=== PATIENT | male | born 2000 | race Caucasian/White ===

== ENCOUNTER 2023-03-13 12:25 | Emergency (ER) | payer OTHER, SELFPAY ==
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
--- NOTE | ~2023-03-13 | XR_ITS ---
EXAMINATION: XR knee LT 3V DATE: 03/13/2023 16:21 INDICATION: Left knee pain TECHNIQUE: Anteroposterior, oblique and crosstable lateral views of the left knee were obtained COMPARISON: None. FINDINGS: Alignment is normal. No fracture. No joint effusion/layering lipohemarthrosis. Soft tissues are unre markable. IMPRESSION: 1. Negative left knee radiographs. Reviewed, dictated and finalized at location A. NG CHAIR SEAT CUSHION TRIMMER
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
[2023-03-13 12:39] VITALS: BP 142/86; PULSE 109; RESP 20; TEMP 36.6; O2SAT 100
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
[2023-03-13] MEDS: IBUPROFEN 600 MG TABLET PO (16:23)
[2023-03-13 17:21] VITALS: BP 130/88; PULSE 90; RESP 18; TEMP 36.6; O2SAT 98
== END 2023-03-13 17:25 | disposition home or self-care (01) ==
PROVIDERS: Emergency Provider Emergency Medicine
DX: S39.012A Strain of muscle, fascia and tendon of lower back, initial encounter (principal); S80.02XA Contusion of left knee, initial encounter; V89.2XXA Person injured in unspecified motor-vehicle accident, traffic, initial encounter
CPT/HCPCS: 72040; 72072; 72100; 73562; 99284; A9270

== ENCOUNTER 2023-12-20 10:58 | Emergency (ER) | payer OTHER, SELFPAY ==
--- NOTE | 2023-12-20 11:11 | ED_ITS ---
HPI - General Adult General Chief complaint: Unspecified Stated complaint: bleeding unk area Time Seen by Provider: 12/20/23 11:20 Source: patient Mode of arrival: ambulatory Limitations: no limitations History of Present Illness HPI narrative: 23 y/o male presented for c/o rectal bleeding while in the shower today. States he has had pain to the tailbone area when sitting for about one week. Admits to 'digging stuff out' while in the shower, reports boss stool smelling material, and states the pain is better afterwards. Has not noticed bleeding until today. Has saturated some gauze that has been in place for one hour. Denies recent constipation or hemorrhoids, n/v/d/f/c. Related Data Allergies Allergy/AdvReac Type Severity Reaction Status Date / Time No Known Allergies Allergy Verified 12/20/23 11:11 Review of Systems Review of Systems: CONSTITUTIONAL: Denies body aches, fever, chills, or sweats. CARDIOVASCULAR: Denies chest pain, palpitations, or edema. RESPIRATORY: Denies cough or dyspnea. GASTROINTESTINAL: Denies abdominal pain, nausea, vomiting, or diarrhea. SKIN: per HPI MUSCULOSKELETAL: Denies back pain, joint pain, or myalgia. NEUROLOGIC: Denies headache, numbness, tingling, or weakness. PMFSH Comments At time of signature, I have reviewed and agree with nursing past medical, surgical, social and family history unless otherwise noted. Please see nursing chart for further information. There is no relevant family history pertinent to the presenting complaint Exam Narrative: GENERAL: Well-appearing ENT: Mucous membranes moist. CHEST: Clear to auscultation. HEART: Regular rate and rhythm. SKIN: Warm, dry. Approx 3cm linear fissure noted to coccyx area, approx 2cm deep when pt reported pain. Active bleeding, saturated gauze in place. No fluctuance or surrounding induration, no purulent drainage noted. Skin is nontender surrounding the site. 2 additional pinpoint open areas distally without drainage or fluctuance. No external hemorrhoid noted. NEURO: Alert and oriented x3. Course Course Emergency Course: Patient is aware of diagnosis, understands and agrees to treatment plan. Anticipatory guidance given. Patient agrees to follow-up as directed and is aware of reasons to seek care at the emergency department. Portions of this record may have been created with voice recognition software Level of Care: Express Care Visit Vital Signs Vital signs: Vital Signs Temperature 97.4 F L 12/20/23 11:13 Pulse Rate 66 12/20/23 11:13 Respiratory Rate 15 12/20/23 11:13 Blood Pressure 132/88 12/20/23 11:13 Pulse Oximetry 100 12/20/23 11:13 Oxygen Delivery Room Air 12/20/23 11:13 Temperature 97.4 F L 12/20/23 11:13 Pulse Rate 66 12/20/23 11:13 Respiratory Rate 15 12/20/23 11:13 Blood Pressure 132/88 12/20/23 11:13 Pulse Oximetry 100 12/20/23 11:13 Oxygen Delivery Room Air 12/20/23 11:13 Reviewed Transfer Transfered to: [facility] Transportation: Other (Private vehicle) Transfer rationale: Pt is agreeable to transfer. Requests transfer to [facility] via private vehicle. Risks of transportation reviewed with pt including injury, worsening of condition and . v/u. Report called to hospital, spoke with Shailesh Mcmanus, accepting physician. Pt is in stable condition at time of transfer. Advised to remain NPO and go directly to the hospital. Medical Decision Making MDM Narrative Medical decision making narrative: Discussed physical exam findings with pt. Advised ER transfer due to bleeding at coccyx c/w fissure suspect 2/2 pilonidal abscess. Pt would like [facility]. Differential Diagnosis Differential Diagnosis: abscess, pilonidal cyst, cellulitis, fissure, carcinoma, hemorrhoid, Vital Signs Vital Signs: Vital Signs Temperature 97.4 F L 12/20/23 11:13 Pulse Rate 66 12/20/23 11:13 Respiratory Rate 15 12/20/23 11:13 Blood Pressure 132/88 12/20/23 11:13 Pulse Oximetry 100 12/20/23 11:13 Oxygen Delivery Room Air 12/20/23 11:13 Temperature 97.4 F L 12/20/23 11:13 Pulse Rate 66 12/20/23 11:13 Respiratory Rate 15 12/20/23 11:13 Blood Pressure 132/88 12/20/23 11:13 Pulse Oximetry 100 12/20/23 11:13 Oxygen Delivery Room Air 12/20/23 11:13 Discharge Plan Discharge Clinical Impression: Fissure of skin Patient Disposition: Acute Care Hospital Condition: Stable Prescriptions: No Action cyclobenzaprine 10 mg tablet 10 mg PO BID PRN (Reason: muscle spasm) Qty: 14 0RF Follow-up/Referrals: PHYSICIAN,DIRECTOR INSTRUCTIONAL MATERIAL [Primary Care Provider] - Time of Disposition: 11:48
[2023-12-20 11:13] VITALS: BP 132/88; PULSE 66; RESP 15; TEMP 36.3; O2SAT 100
== END 2023-12-20 11:40 | disposition short-term general hospital (02) ==
PROVIDERS: Emergency Provider Nurse Practitioner Family
DX: R23.4 Changes in skin texture (principal)
CPT/HCPCS: 99212; G0463

== ENCOUNTER 2023-12-20 11:55 | Emergency (ER) | payer OTHER, SELFPAY ==
--- NOTE | ~2023-12-20 | CT_ITS ---
CLINICAL INDICATION: Lower back abscess formation. COMPARISON: None. TECHNIQUE: An enhanced CT of the abdomen and pelvis was performed utilizing multislice spiral technEnval ue reconstructed at 5 mm slice thickness. Coronal and sagittal reconstructions were performed. This CT examination was performed utilizing dose reduction techniques. DLP: 1259 mGy-cm FINDINGS/OBSERVATIONS: Visualized lower thorax:Left basilar atelectasis is identified. The remainder of the lungs are unremarkable. Liver: The liver is not enlarged and enhances homogeneously. Gallbladder and biliary system: The gallbladder is decompressed without calcified stones. Pancreas: The pancreas enhances homogeneously, without ductal dilatation. Spleen: The spleen is not enlarged and enhances homogeneously. Kidneys: The bilateral kidneys enhance symmetrically. No hydronephrosis or renal calculi. Adrenal glands: Unremarkable Gastrointestinal tract: Unremarkable Appendix:The air-filled appendix is of normal caliber (axial series, image 119). Vasculature: Unremarkable Lymph nodes: No morphologically suspicious or pathologically enlarged lymph nodes identified within t he retroperitoneum or at the root of the mesentery. Pelvic structures:The bladder is only minimally distended, but otherwise unremarkable. The prostate gland is age-appropriate. Body wall and musculoskeletal: Small fat-containing umbilical hernia. Induration of the superficial soft tissues posterior to the distal sacrum and coccyx, without a fluid component. This induration measures 16 x 15 x 47mm (anterior to posterior x medial to lateral x stagecraft teacher nial to caudal dimension). IMPRESSION: Findings posterior to the distal sacrum and coccyx which given its location suggest an early pilonida l cyst (although without a fluid component currently). Otherwise, unremarkable CT examination of the abdomen and pelvis, as detailed above. Reviewed, dictated and finalized at location A. IMPRESSION: Findings posterior to the distal sacrum and coccyx which given its location sug gest an early pilonidal cyst (although without a fluid component currently). Otherwise, unremarkable CT examination of the abdomen and pelvis, as detailed a jessy.
[2023-12-20 12:03] VITALS: BP 128/80; PULSE 95; RESP 17; TEMP 36.7; O2SAT 98
--- NOTE | 2023-12-20 12:20 | ED_ITS ---
HPI - General Adult General Chief complaint: Skin/Abscess/Foreign Body Stated complaint: something going on in my tailbone area Time Seen by Provider: 12/20/23 12:10 Source: patient History of Present Illness HPI narrative: 23 years old white male came to the ED because of soreness at the lower back for while could be months noticed some bloody discharge in the last few days patient is healthy otherwise, does not smoke or drink or use drugs, Related Data Home Medications Medication Instructions Recorded Confirmed fludrocortisone 0.1 mg tablet 0.1 mg PO DAILY 12/20/23 12/20/23 Allergies Allergy/AdvReac Type Severity Reaction Status Date / Time No Known Allergies Allergy Verified 12/20/23 12:08 Review of Systems Review of Systems: All systems reviewed & are unremarkable except as noted in HPI and below Exam Narrative: General appearance: Well-developed, well-nourished Skin: Normal color Head: Normocephalic, nontraumatic Eyes: Clear conjunctiva ENT: Oropharynx normal, ears normal, nose normal Neck: Supple, nontender Chest and respiratory: Airway patent, no respiratory distress, no accessory muscle use Heart: Regular rate/rhythm Abdomen: Soft, nontender, no organomegaly, quiet bowel sounds Vascular: Normal peripheral pulses, normal capillary refill. Musculoskeletal: lower back exam showed diffuse tenderness along the midline of the sacral area with for a burning ranging from 4 mm to 3 cm no discharge Neurologic: Alert and oriented ?3, SUPERVISOR PATCHING is normal as tested, no gross motor deficit Course Consultations Consultation #1: DR CARRILLO OUTSIDE FOLLOW-UP Date: 12/20/23 Vital Signs Vital signs: Vital Signs Temperature 36.7 C 12/20/23 12:03 Pulse Rate 95 12/20/23 12:03 Respiratory Rate 17 12/20/23 12:03 Blood Pressure 128/80 12/20/23 12:03 Pulse Oximetry 98 12/20/23 12:03 Oxygen Delivery Room Air 12/20/23 12:03 Temperature 36.7 C 12/20/23 12:03 Pulse Rate 74 12/20/23 14:00 Respiratory Rate 15 12/20/23 14:00 Blood Pressure 141/84 H 12/20/23 14:00 Pulse Oximetry 100 12/20/23 14:00 Oxygen Delivery Room Air 12/20/23 12:03 Medical Decision Making [facility] Narrative Medical decision making narrative: PATIENT CAME TO THE ED BY PRIVATE CAR WITH PAIN AND DISCHARGE AT THE [facility] STARTED FEW WEEKS AGO VITAL SIGNS ARE STABLE PHYSICAL EXAMINATION SHOWING FINDINGS CONSISTENT WITH PILONIDAL CYST /ABSCESS WITH 4 OPENINGS DIFFERENTIAL DIAGNOSIS PILONIDAL CYST WITH ABSCESS BLOOD WORKUP TODAY SHOWED NORMAL WBC, NORMAL ELECTROLYTES, NORMAL ANION GAP CT ABDOMEN AND PELVIS WITIV CONTRAST SHOWED FINDING CONSISTENT WITH PILONIDAL CYST, NO ABSCESS DISCHARGED ON KEFLEX, FOLLOW-UP WITH DR. CARRILLO OUTPATIENT. THE PT WAS DISCHARGED TO HOME.THE PT,S CONDITION UPON DISCHARGE WAS FAIR,EDUC ATION WAS PROVIDED TO THE PT IN REFERENCE TO THE FINAL IMPRESSION,DISCHARGE STUDY RESULTS,TREATMENT,PROGNOSIS AND NEED FOR FOLLOW UP . Differential Diagnosis Differential Diagnosis: ABOVE Vital Signs Vital Signs: Vital Signs Temperature 36.7 C 12/20/23 12:03 Pulse Rate 95 12/20/23 12:03 Respiratory Rate 17 12/20/23 12:03 Blood Pressure 128/80 12/20/23 12:03 Pulse Oximetry 98 12/20/23 12:03 Oxygen Delivery Room Air 12/20/23 12:03 Temperature 36.7 C 12/20/23 12:03 Pulse Rate 74 12/20/23 14:00 Respiratory Rate 15 12/20/23 14:00 Blood Pressure 141/84 H 12/20/23 14:00 Pulse Oximetry 100 12/20/23 14:00 Oxygen Delivery Room Air 12/20/23 12:03 Lab Data 12/20/23 12:54 12/20/23 12:54 Labs: Lab Results 12/20/23 12/20/23 12/20/23 Range/Units 12:53 12:54 14:44 WBC 9.8 (4.5-10.0) K/mm3 RBC 5.38 (4.6-6.20) M/mm3 Hgb 15.3 (14.0-18.0) g/dL Hct 45.2 (42.0-52.0) % MCV 84.0 (80-100) fl MCH 28.4 (26-34) pg MCHC 33.8 (32-36) g/dl RDW 12.8 (11.5-14.5) % Plt Count 381 H (150-375) k/mm3 MPV 9.0 (7.4-10.4) fl Immature Gran % (Auto) 0.2 (0-0.5) % Neut % (Auto) 63.8 (45.5-73.1) % Lymph % (Auto) 26.6 (18.3-44.2) % [place] % (Auto) 7.4 (2.6-8.5) % Eos % (Auto) 1.4 (0-4.4) % Baso % (Auto) 0.6 (0.2-1.2) % Lymph # (Auto) 2.60 (0.9-3.2) K/mm3 [place] # (Auto) 0.7 H (0.1-0.6) K/mm3 Eos # (Auto) 0.1 (0-0.3) K/mm3 Baso # (Auto) 0.1 (0.0-0.1) K/mm3 Abs Immat Gran (auto) 0.02 (0.00-0.031) K/mm3 Absolute Neuts (auto) 6.2 (1.3-6.7) K/mm3 Absolute Nucleated RBC 0.000 (0.0-0.012) K/mm3 Nucleated RBC % 0.0 (0.0-0.2) % Sodium 142 (137-145) mmol/L Potassium 3.8 (3.4-5.0) mmol/L Chloride 103 (98-107) mmol/L Carbon Dioxide 26 (22-30) mmol/L Anion Gap 13 H (4-12) mmol/L BUN 13 (9-20) mg/dL Creatinine 1.00 (0.7-1.3) mg/dL Estim Creat Clear Calc 137 ml/min Estimated GFR > 60 (59 - ) Glucose 83 (65-110) mg/dL Calcium 9.9 (8.4-10.2) mg/dL Total Bilirubin 0.4 (0.2-1.3) mg/dL AST 38 (17-59) U/L ALT 39 (6-50) U/L Alkaline Phosphatase 92 (38-126) U/L Total Protein 9.0 H (6.3-8.2) g/dL Albumin 5.1 (3.5-5.1) g/dL Lipase 91 (23-300) U/L Urine Color Yellow (Yellow) Urine Appearance Clear (Clear) Urine pH 5.5 (5.0-9.0) Ur Specific [place] > 1.045 H (1.001-1.035) Urine Protein Negative (Negative) mg/dL Urine Glucose (UA) Negative (Negative) mg/dL Urine Ketones Trace H (Negative) mg/dL Ur Blood (Man) Negative (Negative) Urine Nitrate Negative (Negative) Urine Bilirubin Negative (Negative) Urine Urobilinogen 0.2 (<2.0) mg/dL Leukocyte Esterase Rfl Negative (Negative) BREANNA/UL Imaging Data Radiologist's impression: Impressions Abdomen/Pelvis CT 12/20/23 13:55 IMPRESSION: Findings posterior to the distal sacrum and coccyx which given its location suggest an early pilonidal cyst (although without a fluid component currently). Otherwise, unremarkable CT examination of the abdomen and pelvis, as detailed above. Critical Care Time Critical Care Time Critical Care Time: No Discharge Plan Discharge Clinical Impression: Pilonidal cyst Patient Disposition: Home, Self-Care Condition: Stable Instructions: Antibiotic Form, Pilonidal Cyst (ED) Additional Instructions: Return if symptoms are worsening , call your Dr. Carrillo tomorrow for appointment, take Tylenol, ibuprofen as as needed for aches and pain, continue home medications. use dressing/Band-Aid to avoid external drainage Prescriptions: New cephalexin 500 mg capsule 500 mg PO Q6H 7 Days Qty: 28 0RF No Action fludrocortisone 0.1 mg Tablet 0.1 mg PO DAILY Follow-up/Referrals: Mane Carrillo MD [Physician] - 12/21/23 PHYSICIAN,FAMILY AND CONSUMER SCIENCES PROFESSOR [Non-Staff] -
[2023-12-20 13:00] LABS: Basophils Absolute Auto 0.1 K/mm3 (0.0-0.1); Basophils Percent Auto 0.6 % (0.2-1.2); Eosinophils Absolute Auto 0.1 K/mm3 (0-0.3); Eosinophils Percent Auto 1.4 % (0-4.4); Hematocrit 45.2 % (42.0-52.0); Hemoglobin 15.3 g/dL (14.0-18.0); Immature Granulocyte Absolute 0.02 K/mm3 (0.00-0.031); Immature Granulocyte Percent A 0.2 % (0-0.5); Lymphocytes Percent Auto 26.6 % (18.3-44.2); Mean Corpuscular HGB Conc 33.8 g/dl (32-36); Mean Corpuscular Hemoglobin 28.4 pg (26-34); Monocytes Absolute Auto 0.7 K/mm3 (0.1-0.6); Monocytes Percent Auto 7.4 % (2.6-8.5); Neutrophils Absolute Auto 6.2 K/mm3 (1.3-6.7); Neutrophils Percent Auto 63.8 % (45.5-73.1); Platelet Count Result 381 k/mm3 (150-375); Red Blood Count 5.38 M/mm3 (4.6-6.20); Red Cell Distribution Width 12.8 % (11.5-14.5); White Blood Count 9.8 K/mm3 (4.5-10.0)
[2023-12-20 13:09] LABS: Alanine Aminotransferase 39 U/L (6-50); Albumin Level 5.1 g/dL (3.5-5.1); Alkaline Phosphatase 92 U/L (38-126); Anion Gap 13 mmol/L (4-12); Aspartate Amino Transferase 38 U/L (17-59); Bilirubin,Total 0.4 mg/dL (0.2-1.3); Blood Urea Nitrogen 13 mg/dL (9-20); Calcium 9.9 mg/dL (8.4-10.2); Carbon Dioxide 26 mmol/L (22-30); Chloride 103 mmol/L (98-107); Estimated CRCL calculation 137 ml/min; Estimated Glomerular Filt Rate > 60; Glucose 83 mg/dL (65-110); Potassium 3.8 mmol/L (3.4-5.0); Sodium 142 mmol/L (137-145)
--- NOTE | 2023-12-20 13:36 | PC.NURSE ---
pt to CT scan via stretcher at this time
[2023-12-20 14:00] VITALS: BP 141/84; PULSE 74; RESP 15; O2SAT 100
[2023-12-20 14:49] LABS: Lipase 91 U/L (23-300)
[2023-12-20 15:09] LABS: Add Urine Microscopic? NO; Appearance Urine Clear (Clear); Bilirubin Urine Negative (Negative); Blood Urine Negative (Negative); Color Urine Yellow (Yellow); Glucose Urine UA Negative (Negative); Ketones Urine Trace mg/dL (Negative); Leukocyte Esterase Ur Negative LEU/UL (Negative); Nitrate Urine Negative (Negative); Protein Urine Negative (Negative); Specific Grav Ur > 1.045 (1.001-1.035); Urobilinogen Urine 0.2 mg/dL (<2.0); pH Urine 5.5 (5.0-9.0)
[2023-12-20 16:11] VITALS: BP 151/85; PULSE 75; RESP 18; O2SAT 99
== END 2023-12-20 16:12 | disposition home or self-care (01) ==
PROVIDERS: Emergency Provider Emergency Medicine
DX: L05.91 Pilonidal cyst without abscess (principal)
CPT/HCPCS: 36415; 74177; 80053; 81003; 83690; 85025; 99284; Q9967

== ENCOUNTER 2024-01-07 11:25 | Outpatient (CLI) | payer OTHER, SELFPAY ==
[2024-01-07 12:20] LABS: Basophils Absolute Auto 0.1 K/mm3 (0.0-0.1); Basophils Percent Auto 0.8 % (0.2-1.2); Eosinophils Absolute Auto 0.1 K/mm3 (0-0.3); Eosinophils Percent Auto 1.5 % (0-4.4); Hematocrit 42.9 % (42.0-52.0); Hemoglobin 14.2 g/dL (14.0-18.0); Immature Granulocyte Absolute 0.01 K/mm3 (0.00-0.031); Immature Granulocyte Percent A 0.1 % (0-0.5); Lymphocytes Absolute Auto 2.02 K/mm3 (0.9-3.2); Lymphocytes Percent Auto 28.3 % (18.3-44.2); Mean Corpuscular HGB Conc 33.1 g/dl (32-36); Mean Corpuscular Hemoglobin 27.9 pg (26-34); Mean Corpuscular Volume 84.3 fl (80-100); Mean Platelet Volume 9.2 fl (7.4-10.4); Monocytes Absolute Auto 0.6 K/mm3 (0.1-0.6); Monocytes Percent Auto 7.8 % (2.6-8.5); Neutrophils Absolute Auto 4.4 K/mm3 (1.3-6.7); Neutrophils Percent Auto 61.5 % (45.5-73.1); Platelet Count Result 366 k/mm3 (150-375); Red Blood Count 5.09 M/mm3 (4.6-6.20); Red Cell Distribution Width 12.6 % (11.5-14.5); White Blood Count 7.2 K/mm3 (4.5-10.0)
[2024-01-07 12:33] LABS: Anion Gap 9 mmol/L (4-12); Blood Urea Nitrogen 10 mg/dL (9-20); Calcium 9.8 mg/dL (8.4-10.2); Carbon Dioxide 25 mmol/L (22-30); Chloride 104 mmol/L (98-107); Estimated Glomerular Filt Rate > 60; Glucose 92 mg/dL (65-110); Potassium 4.2 mmol/L (3.4-5.0); Sodium 138 mmol/L (137-145)
== END 2024-01-07 11:26 | disposition home or self-care (01) ==
PROVIDERS: Visit Provider Surgery
DX: L05.91 Pilonidal cyst without abscess (principal)
CPT/HCPCS: 36415; 80048; 85025

== ENCOUNTER 2024-01-09 00:12 | Day surgery (SDC) | payer OTHER, SELFPAY ==
[2024-01-02 08:33] VITALS: BMI 33.0
--- NOTE | 2024-01-02 08:40 | PC.NURSE ---
Report to the Outpatient Waiting Room, entrance under the green pavilion located off [facility], at time _0600_ on date _[id number]_. Planned Procedure Time: _0730_.? Time changes happen often and if your time is changed the preop area will call you the afternoon before. - You and your visitor will be asked to self-screen and do not enter if you have any COVID symptoms. Please call surgeon if you need to reschedule. - A mask is optional within the hospital at this time. Patients may have clear liquids (water, carbonated beverages, clear teas, apple juice) until 3 hours prior to surgery with a maximum of 20 ounces. - No food from midnight until time of surgery and no smoking Take only the following medications with a SIP of water on the morning of surgery: __Fludrocortisone and Cefalaxin if still taking day of surgery.__ DO NOT STOP ANY OF YOUR OTHER PRESCRIPTION MEDICATIONS PRIOR TO SURGERY EXCEPT THE FOLLOWING Medications to discontinue per physician ___Check with Dr Mujica's office if need to stop Ibuprofen.___ Please no make-up, nail serbian, hairspray, perfume, deodorant, or body powder the day of surgery.? No jewelry (including any body piercings) or valuables the day of surgery, leave them at home.? Please take a shower or bath the night before, or the morning of, surgery with an antibacterial soap.? Wear comfortable, loose fitting clothing.? - Jewelry must be removed prior to entering the operating room.? Rings and piercings that are not removed may be cut off. - The hospital will not accept responsibility for valuables.? - Please leave all valuables, including medications, at home the day of surgery. If you are going home after surgery, a licensed pile driver operator barge mounted must drive you home.? - NO public transportation without another adult if you receive anesthesia. - We recommend that an adult stay with you for 24 hours following discharge. - We also recommend that you do not drive, make important decision, drink alcoholic beverages, or take any drugs that were not prescribed by your health care provider for at least 24 hours after your discharge time. Follow any additional instructions given to you from your surgeon. Telephone instructions given to _Attila__and asked if any additional questions and then verbalized understanding. Patient advised to call surgeon office or pre surgery nurse liaison [phone] if any additional questions.
[2024-01-09] VITALS (8 sets, daily range): BP systolic 118–146; BP diastolic 61–82; PULSE 59–87; RESP 14–16; TEMP 36.5–37; O2SAT 100; BMI 33.5
[2024-01-09] MEDS: LACTATED RINGERS 1,000 ML 30 ML IV CONT (06:55)
--- NOTE | 2024-01-09 07:06 | WPDANESEPPF ---
Anes - Initial Pre Proc Eval Procedure: Operation Date: 01/09/24 07:30 Proposed Procedures p Incision and Drainage Complicated Pilonidal Cyst - Mane Mujica MD Date/Time: 01/09/24 07:06 Surgeon: Mane Mujica MD Pre Op Diagnosis: Complicated Pilonidal Cyst Patient Data Age: 23 Gender: M Height: 1.85 m Weight: 113.6 kg Allergies Allergy/AdvReac Type Severity Reaction Status Date / Time No Known Allergies Allergy Verified 01/02/24 08:32 Home Medications Medication Instructions Recorded Confirmed Type cephalexin 500 mg capsule 500 mg PO Q6H 7 days #28 caps 12/20/23 01/02/24 Rx fludrocortisone 0.1 mg tablet 0.1 mg PO DAILY 12/20/23 01/02/24 History cetirizine 10 mg tablet (Zyrtec) 10 mg PO DAILY PRN Allergy Symptoms 12/24/23 01/02/24 History ibuprofen 200 mg tablet 200 mg PO Q6H PRN Pain 12/24/23 01/02/24 History Patient hx anesthesia problems: none Family hx anesthesia problems: none Results Review: All pre-operative results and documents have been reviewed as part of the pre-operative evaluation. [facility] Family History Family History Mother Thyroid cancer Social History Social History Smoking status: Never smoker Alcohol intake: current Alcohol use details: Occasional/social alcohol use Substance use: never Current Housing: Decline to Answer Concerned About Future Housing: Decline to Answer Difficulty Paying Gas/Electric Bills: Decline to Answer Difficulty Paying for Meds: Decline to Answer Currently Unemployed: Decline to Answer Education: Decline to Answer Living arrangements: with family Gender identity (if verbalized by the patient): Male Spiritual care concerns: No Anes - Eval Final PreProcedure Day of Procedure 01/09/24 07:06 Patient weight: obese Heart: regular rate and rhythm Lungs: clear to auscultation Airway: Mallampati scale class II Neurological: alert and oriented Last oral intake: >/= 8 hours ASA classification: II Emergent: no Anesthetic plan: proceed Anesthesia type and monitoring: general ETT and standard monitoring Results Review: All pre-operative results and documents have been reviewed as part of the pre-operative evaluation. Informed Consent: The patient's anesthetic plan and its attendant risks and benefits were discussed with the patient/family/POA. Questions were solicited and answers provided to the satisfaction of the patient/family/POA.
--- NOTE | 2024-01-09 07:22 | WPDHPUPDATE1 ---
History and Physical Update Update Date/Time: 01/09/24 07:22 History and Physical has been reviewed, including an updated exam of the patient. There are NO changes in the patient's condition. Risks, benefits, and alternatives have been discussed and questions answered. Patient agrees to proceed with procedure.
[2024-01-09] MEDS: ceFAZolin 2 GM/D5W 50 ML 2 GM/50 ML BAG IVPB (07:25)
[2024-01-09] MEDS: BUPIVACAINE/EPINEPHRINE 0.5% 50 ML VIAL 30 ML INFILTRATE (08:02)
--- NOTE | 2024-01-09 08:40 | W.PM.PROC2 ---
Procedure Note - Detailed Date of Procedure 01/09/24 Pre-op Diagnosis Complicated Pilonidal Cyst Post-op Diagnosis Same Procedure Performed Incision and drainage complex pilonidal cyst Surgeon Mane Mujica MD [employer] Consultant Kaela Banegas [facility] Anesthesia General and Local Indications Patient has had a long-standing pilonidal cyst which has developed many tracts and clefts. It is painful. There is no current abscess. He is taken to surgery now for incision and drainage of complex pilonidal cyst. Findings The pilonidal cyst was 8 cm in length. There was skin bridges over a deep tract with extensive granulation tissue and large amounts of trapped hair. Description of Procedure Patient was taken to surgery and induced into general anesthesia. He was then turned to a prone position. He had a role under his pubis. Extensive hair shaving with clippers was used over both buttocks and near the pilonidal cyst. We then taped the buttocks apart. A prep razor was then used to get smaller hairs near the cyst opening. The cyst was measured and was 8 cm in length. I pulled several large masses of hair that had imbedded in the various clefts and tracks. The buttocks were then taped apart. Some additional fine hair near the wound was removed. Prep and drape was carried out. I was able to place a probe through the fairly deep tract from cephalad to the caudad extent of the pilonidal cyst. Using the cautery, I opened the skin bridges and smaller tracks over the probe so that the entire pilonidal cyst was laid open to be treated. More body hair was then removed. There was extensive granulation tissue which was curetted away. I infiltrated local anesthesia throughout the wound for postoperative pain management. I then used cautery to achieve good hemostasis. The wound was packed with an entire 5 x 9 inch Xeroform gauze. Extensive fluffs were placed over the Xeroform gauze. Medipore tape was used to secure the dressing. Patient was then returned to a supine position. He was extubated, awakened and taken to recovery in good condition. Sponge and needle counts were correct x2. Estimated Blood Loss -10 Drains No Packing Yes (5 in x 9 in Xeroform gauze) Pathology None sent Complications None Condition Stable Disposition PACU [facility] Billing Surgery - Charge Forward: Surgery Billing (Incision and drainage complicated pilonidal cyst)
== END 2024-01-09 10:15 | disposition home or self-care (01) ==
PROVIDERS: Visit Provider Surgery
PROC: (CPT 11772; principal; 2024-01-09 07:30)
DX: L05.91 Pilonidal cyst without abscess (principal); E66.9 Obesity, unspecified; Z68.33 Body mass index [BMI] 33.0-33.9, adult
CPT/HCPCS: 11772; A9270; J0690; J1100; J2003; J2250; J2405; J2704; J3010; J7120; Q9968

== ENCOUNTER 2024-04-20 09:43 | Emergency (ER) | payer OTHER, SELFPAY ==
--- NOTE | ~2024-04-20 | XR_ITS ---
EXAMINATION: XR chest 2V DATE: 04/20/2024 10:27 INDICATION: Cough. TECHNIQUE: Frontal and lateral views of the chest were obtained. COMPARISON: None. FINDINGS: There is no pneumonia, pleural effusion, or pneumothorax. The heart size is normal. IMPRESSION: 1. No acute cardiopulmonary disease. Reviewed, dictated and finalized at location A. DUMPER
[2024-04-20 09:55] VITALS: BP 131/83; PULSE 84; RESP 16; TEMP 35.8; O2SAT 99
--- NOTE | 2024-04-20 10:11 | ED_ITS ---
HPI - URI/Sore Throat General Chief Complaint: Upper Respiratory Infection Stated Complaint: SOB/FEVER Time Seen by Provider: 04/20/24 10:11 Source: patient, family, RN notes reviewed and old records reviewed Mode of arrival: ambulatory Limitations: no limitations History of Present Illness HPI Narrative: 23-year-old male accompanied by mother presents to [facility] with 3 day history of fever, cough with some dyspnea stated and pain under right ribs with cough. Patient reports that his throat hurts with his cough and he also has some sinus congestion and drainage. Patient has been taking been Ibuprofen, DayQuil and NyQuil , taking liquid IV packets, and also taking Vitamin C,D and Zinc and using cough drops. Mother reports that patient has had harsh cough with prior history of pneumonia and would like chest x-ray. MD elicited complaint: fever, cough and other (states some dyspnea, pain under right rib and sore throat with cough) Onset (ago): day(s) (3) Consistency: constant Severity: moderate Able to tolerate fluids by mouth: Yes Treatments prior to arrival: ibuprofen and other (DayQuil and NyQuil, cough drops,) Related Data Allergies Allergy/AdvReac Type Severity Reaction Status Date / Time adhesive AdvReac Unknown Rash Verified 04/20/24 09:58 Review of Systems Review of Systems: CONSTITUTIONAL: Reports malaise, chills, sweats, or fever. EYES: Denies visual changes, redness, or discharge. ENT: Reports rhinorrhea, congestion, sinus pain, no otalgia and positive for sore throat with cough.. CARDIOVASCULAR: Denies chest pain, palpitations, or edema. RESPIRATORY: Reports cough.? states some dyspnea with respirations nonlabored and SAO2 99% on room air pain under right ribs with cough GASTROINTESTINAL: Denies abdominal pain, nausea, vomiting, diarrhea SKIN: Denies rash or itching. MUSCULOSKELETAL: reports myalgia. NEUROLOGIC: Denies headache. All systems reviewed & are unremarkable except as noted in HPI and below PMFSH Past Medical History Medical History (Updated 04/22/24 @ 13:14 by Kamryn Pizano NP) Autism spectrum disorder Surgical History Surgical History History of incision and drainage 01/09/24 incision and drainage complex pilonidal cyst. Dr. Mujica Family History Family History Mother Thyroid cancer Social History Social History Smoking status: Never smoker Alcohol intake: current Alcohol use details: Occasional/social alcohol use Substance use: never Do You Feel Safe in your Home?: Yes Lack of Transportation: No Lack of Food: Never True Current Housing: I Have Housing Concerned About Future Housing: No Difficulty Paying Gas/Electric Bills: No Difficulty Paying for Meds: No Currently Unemployed: No Education: High School Diploma/GED Difficulty w/ Childcare or Family Care: No Living arrangements: with family Gender identity (if verbalized by the patient): Male Spiritual care concerns: No Comments At time of signature, agree with nursing past medical, surgical, social and family history. There is no relevant family history pertinent to the presenting complaint Exam Narrative: GENERAL: Well-appearing, well-nourished, and in no acute distress. HEAD: Normocephalic EYES: PERRLA, conjunctivae clear ENT: Nares clear, turbinates edematous and erythematous, clear discharge. Mucous membranes moist. TM pearly boss with dull light reflex bilaterally; no tragal tenderness. Oropharynx erythematous without lesions. Tonsils not enlarged and without exudate, no drooling, no hoarseness, no trismus, uvula midline,post nasal drainage NECK: Supple. No lymphadenopathy CHEST: Decreased breath sounds on auscultation, breath sounds equal. No wheezing, rhonchi, rales, or stridor. No respiratory distress, speaks in full sentences.cough noted SAO2 99% on room air HEART: Regular rate and rhythm. No murmur heard. SKIN: Warm, dry, no rash. NEURO: Alert and oriented x3. PSYCH: Normal mood and affect Course Course Emergency Course: Patient is aware of diagnosis, understands and agrees to treatment plan.? Anticipatory guidance given.? Patient agrees to follow-up as directed and is aware of reasons to seek care at the emergency department. Portions of this record may have been created with voice recognition software Level of Care: Express Care Visit Vital Signs Vital signs: Vital Signs Temperature 35.8 C L 04/20/24 09:55 Pulse Rate 84 04/20/24 09:55 Respiratory Rate 16 04/20/24 09:55 Blood Pressure 131/83 04/20/24 09:55 Pulse Oximetry 99 04/20/24 09:55 Temperature 35.8 C L 04/20/24 09:55 Pulse Rate 84 04/20/24 09:55 Respiratory Rate 16 04/20/24 09:55 Blood Pressure 131/83 04/20/24 09:55 Pulse Oximetry 99 04/20/24 09:55 Reviewed MDM - URI/Sore Throat MDM Narrative Medical decision making narrative: Differential diagnosis considered: Duenas virus, strep pharyngitis, allergic rhinitis, upper respiratory tract infection, sinusitis, rhinosinusitis, nasopharyngitis. viral pharyngitis, otitis media, otitis externa, pneumonia, bronchitis, viral cough syndrome, viral syndrome, and influenza.? Exam findings show no acute concerns or changes; patient is non-toxic appearing and is in no distress.? Patient is appropriate for outpatient treatment and follow-up. Differential Diagnosis Differential diagnosis: Likely upper respiratory infection, sinusitis, viral infection, influenza and other (COVID , cough) Medical Records Attestation: I reviewed the patient's medical records. Lab Data Attestation: I reviewed the patient's lab results. Lab results narrative: Influenza A positive, Influenza B negative, COVID antigen negative Imaging Data Attestation: I personally reviewed and interpreted this imaging study as follows: My impression: No acute cardiopulmonary disease Radiologist's impression: [address] [place] [address] XRay Report Signed Patient: Attila Umanzor : 2000 MR#: [id number] Age: 23 Acct:[id number] Loc: [id number] ADM Date: 04/20/24Attending Dr: Ordering Physician: Kamryn Pizano APRN Date of Service: 04/20/24 Procedure(s): XR chest 2V Accession Number(s): [id number] cc: CUMULATIVE EFFECTS ANALYST PHYSICIAN; Kamryn Pizano APRN~ EXAMINATION: XR chest 2V DATE: 04/20/2024 10:27 INDICATION: Cough. TECHNIQUE: Frontal and lateral views of the chest were obtained. COMPARISON: None. FINDINGS: There is no pneumonia, pleural effusion, or pneumothorax. The heart size is normal. IMPRESSION: 1. No acute cardiopulmonary disease. Reviewed, dictated and finalized at location A. [employer] Please be advised this is a medical document. It is intended for [id number] communication. It is written in medical language and may contain unfamiliar abbreviations or verbiage. Medical documents are intended to carry relevant information, facts as evident, and the clinical opinion of the practitioner at the time of the encounter. This report may have been done utilizing a voice recognition system. Attempts have been made to correct errors. However, there may be uncorrected grammatical, spelling, and recognition errors present. The file time of this note does not necessarily represent the time of service. Dictated By: David Pena MD 04/20/24 1028 Signed By: <Electronically signed by David Pena MD in OV> Critical Care Time Critical Care Time Critical Care Time: No Discharge Plan Discharge Clinical Impression: Influenza A Patient Disposition: Home, Self-Care Condition: Stable Instructions: Influenza (ED) Additional Instructions: Increase fluids especially juices and water Gyrf-[id number] cough and cold medicine of your choice for your symptoms Prescription cough medicine as directed--caution drowsiness and no driving or alcohol Tylenol or ibuprofen for any fever pain Zyrtec Claritin or Natalie daily for sinus congestion Steroids as directed--take with food heat to the face 20-30 minutes 4-6 times a day for pain Salt water gargles, throat lozenges or throat sprays as desired If your symptoms persist, change or worsen significantly before you can contact your personal physician then please, without delay, go to the emergency department for further evaluation. Follow-up with PCP in 7-10 days or sooner if needed Follow up with PCP soon in regards to your blood pressure which is elevated above threshold for referral. Blood pressure above 120/80 may indicate pre- hypertension. You must be fever free for 24 hours without use of Tylenol or ibuprofen before you can return to work Patient Language: Chadian Prescriptions: New prednisone 20 mg tablet 40 mg PO DAILY Qty: 10 0RF Rx Instructions: take in am with food codeine-guaifenesin 10-100 mg/5 mL liquid 10 ml PO Q6H PRN (Reason: cough) Qty: 200 0RF Follow-up/Referrals: PHYSICIAN,CUMULATIVE EFFECTS ANALYST [Primary Care Provider] - Stand Alone Forms: Work/School Release IP Time of Disposition: 10:58 Quality [place] Coma Scale Eyes: Open Verbal: Oriented and Alert Motor: Follows Commands [place] Coma Total Score: 15
== END 2024-04-20 11:09 | disposition home or self-care (01) ==
PROVIDERS: Emergency Provider Registered Nurse
DX: J10.1 Influenza due to other identified influenza virus with other respiratory manifestations (principal); F84.0 Autistic disorder
CPT/HCPCS: 71046; 99213; G0463

== ENCOUNTER 2024-05-06 09:22 | Emergency (ER) | payer OTHER, SELFPAY ==
--- NOTE | 2024-05-06 09:25 | ED.URI ---
HPI - URI/Sore Throat General Chief Complaint: Upper Respiratory Infection Stated Complaint: sorethroat, lt earache Time Seen by Provider: 05/06/24 09:24 Source: patient Mode of arrival: ambulatory Limitations: no limitations History of Present Illness HPI Narrative: Attila is a 23-year-old male patient presenting to the clinic today with complaints of sore throat, left ear pain, coughing, and nasal congestion. Reports symptoms have been going on for 2 days. His stepfather just flew in and was ill. MD elicited complaint: cough, sore throat and nasal congestion Related Data Home Medications ?Medication ?Instructions ?Recorded ?Confirmed ?Last Taken ?Type No Home Medications 05/06/24 05/06/24 Unknown History Allergies Allergy/AdvReac Type Severity Reaction Status Date / Time adhesive AdvReac Unknown Rash Verified 05/06/24 09:28 Review of Systems Review of Systems: Pertinent positives per HPI. Patient denies any fever, chills, rash, headache, visual changes, dizziness, cough, shortness of breath, chest pain, palpitations, nausea, vomiting, diarrhea, constipation, abdominal pain, or any urinary issues. [facility] Past Medical History Medical History Autism spectrum disorder Surgical History Surgical History History of incision and drainage 01/09/24 incision and drainage complex pilonidal cyst. Dr. Mujica Family History Family History Mother Thyroid cancer Social History Social History Smoking status: Never smoker Alcohol intake: current Alcohol use details: Occasional/social alcohol use Substance use: never Do You Feel Safe in your Home?: Yes Lack of Transportation: No Lack of Food: Never True Current Housing: I Have Housing Concerned About Future Housing: No Difficulty Paying Gas/Electric Bills: No Difficulty Paying for Meds: No Currently Unemployed: No Education: High School Diploma/GED Difficulty w/ Childcare or Family Care: No Living arrangements: with family Gender identity (if verbalized by the patient): Male Spiritual care concerns: No Comments At the time of my signature, I reviewed and agree with the nursing past medical, surgical, social, and family history. There is no relevant family history pertinent to the patient complaint. Exam Narrative: General: Well-developed, well nourished, in no apparent distress Head: Normocephalic, atraumatic Eyes: Pupils equally round and reactive to light bilaterally, EOM intact, sclera and conjunctive clear, no discharge, lids normal Ears: TMs intact and clear, ear canals clear, no drainage, grossly hearing normal. Nose: Nares patent, clear nasal discharge, mild inflammation, no sinus tenderness. Mouth: Oral pharynx without lesions or masses, good dentition, MMM. Postnasal drip Neck: Supple, trachea midline, no enlargement of anterior or posterior cervical nodes, no thyroid masses or goiter palpable. Cardio: Regular rate and rhythm, s1 and s2 normal, no murmur appreciated. Resp: Clear to auscultation bilaterally, no rhonchi, rales, wheezing or rubs Course Course Emergency Course: Portions of this record may have been created with voice recognition software. Level of Care: Express Care Visit Vital Signs Vital signs: Vital signs reviewed MDM - URI/Sore Throat MDM Narrative Medical decision making narrative: At the time of visit patient is resting comfortably on the exam table. Patient appears to be nontoxic. Labs: Strep, COVID, and influenza testing was performed. All testing was negative. We will send strep for culture. Plan: I suspect patient has URI/otalgia/pharyngitis. Supportive measures were discussed with the patient and they voiced understanding discharge instructions and agrees to treatment plan. Return precautions reviewed Differential Diagnosis Differential diagnosis: Likely upper respiratory infection, otitis media, sinusitis, viral infection, bronchitis, influenza, pharyngitis and other (COVID) Discharge Plan Discharge Clinical Impression: Upper respiratory infection, Pharyngitis, Acute otalgia Patient Disposition: Home, Self-Care Condition: Stable Instructions: Antibiotic Form, Pharyngitis (ED), Earache (ED), Cold Symptoms (ED) Additional Instructions: Strep, COVID, and influenza testing was all negative. We will send strep for culture. Increase fluids and stay well hydrated Tylenol/motrin for pain/fever Flonase and OTC antihistamines as directed Vicks vapor rub to open sinuses Sinus rinses for congestion Cepacol spray, cough drops, throat lozenges, warm tea with honey/lemon, gargle salt water to soothe throat BRAT diet for diarrhea Clear liquids x 24 hours then advance as tolerated for nausea/vomiting Go to the ED if you develop a worsening in your condition- high fever not controlled by Tylenol or Motrin, dehydration, weakness, lethargy, shortness of breath, or chest pain. Follow up with your PCP in 3-5 days if symptoms persist. Patient Language: Romanian Prescriptions: No Action No Home Medications Follow-up/Referrals: PHYSICIAN,CRITICAL CARE UNIT NURSE [Primary Care Provider] - Stand Alone Forms: Work/School Release IP Time of Disposition: 09:46 Quality NIHSS Nursing Documentation ED NIHSS nursing documentation: reviewed/agree
[2024-05-06 09:38] VITALS: BP 131/74; PULSE 71; RESP 16; TEMP 36.6; O2SAT 99
[2024-05-06 09:48] LABS: EDCOVIDSCREEN Negative (Negative); EDINFLUASCREEN Negative (Negative); EDINFLUBSCREEN Negative (Negative); EDSTREPNEGPOS1 Negative (Negative)
== END 2024-05-06 09:50 | disposition home or self-care (01) ==
PROVIDERS: Emergency Provider Nurse Practitioner Family
DX: J06.9 Acute upper respiratory infection, unspecified (principal); J02.9 Acute pharyngitis, unspecified; H92.02 Otalgia, left ear; Z20.822 Contact with and (suspected) exposure to COVID-19; F84.0 Autistic disorder
CPT/HCPCS: 87081; 87426; 87804; 87880; 99213; G0463

== ENCOUNTER 2024-05-08 09:21 | Emergency (ER) | payer OTHER, SELFPAY ==
--- NOTE | ~2024-05-08 | XR_ITS ---
Clinical Indication: Cough PA and lateral views of the chest: Comparison: 04/20/2024 Findings: The lungs are clear, without evidence of focal consolidation or pleural effusion. Cardiome diastinal silhouette is within normal limits. Bones and soft tissues are unremarkable. Impression: Normal chest. Reviewed, dictated and finalized at location . Impression: Normal chest.
--- NOTE | 2024-05-08 09:23 | ED_ITS ---
HPI - URI/Sore Throat General Chief Complaint: Upper Respiratory Infection Stated Complaint: COUGH Time Seen by Provider: 05/08/24 09:23 Source: patient Mode of arrival: ambulatory Limitations: no limitations History of Present Illness HPI Narrative: patient is a 23-year-old male who presents for Cough for 4 days. Patient was seen here 2 days ago for similar symptoms and was negative for COVID flu and strep. denies any fever, chills, nausea vomiting, diarrhea. States when he talks he has coughing fits. Has not taken anything for symptoms. Requesting work note Related Data Allergies Allergy/AdvReac Type Severity Reaction Status Date / Time adhesive AdvReac Unknown Rash Verified 05/08/24 09:34 Review of Systems Review of Systems: All systems reviewed & are unremarkable except as noted in HPI and below Constitutional: Constitutional: Denies chills, Denies fatigue, Denies fever(s), Denies headache(s), Denies malaise and Denies weakness Eyes: Eyes: Denies blurry vision, Denies itchy eyes and Denies loss of vision ENT: Denies otalgia, Denies headache(s), Reports nasal congestion, Denies sinus pain and Denies sore throat Cardiovascular: Cardiovascular: Denies chest pain, Denies irregular heart rhythm and Denies dyspnea Respiratory: Respiratory: Reports cough and Denies dyspnea Gastrointestinal: Gastrointestinal: Denies abdominal pain, Denies diarrhea, Denies nausea and Denies vomiting Musculoskeletal: Musculoskeletal: Denies back pain, Denies myalgias and Denies arthralgias Integumentary/Breasts: Skin/Breast: Denies pruritus and Denies rash Neurologic: Denies headache(s), Denies loss of vision and Denies weakness Psychiatric: Psychiatric: Reports no additional psychiatric complaints Endocrine: Endocrine: Denies fatigue Allergic/Immunologic: Allergic/Immunologic: Denies itchy eyes PMFSH Past Medical History Medical History Autism spectrum disorder Surgical History Surgical History History of incision and drainage 01/09/24 incision and drainage complex pilonidal cyst. Dr. Mujica Family History Family History Mother Thyroid cancer Social History Social History Smoking status: Never smoker Alcohol intake: current Alcohol use details: Occasional/social alcohol use Substance use: never Do You Feel Safe in your Home?: Yes Lack of Transportation: No Lack of Food: Never True Current Housing: I Have Housing Concerned About Future Housing: No Difficulty Paying Gas/Electric Bills: No Difficulty Paying for Meds: No Currently Unemployed: No Education: High School Diploma/GED Difficulty w/ Childcare or Family Care: No Living arrangements: with family Gender identity (if verbalized by the patient): Male Spiritual care concerns: No Comments At time of signature, agree with nursing past medical, surgical, social and family history. There is no relevant family history pertinent to the presenting complaint. Exam Const: General: cooperative, healthy appearing, comfortable, no acute distress and well nourished Nutritional Appearance: well nourished Orientation/consciousness: patient oriented x3 Limitations: no limitations HENMT: Head: normal to inspection, normocephalic and atraumatic Ears: hearing grossly normal bilaterally, external ears normal, TM's normal bilaterally, no periauricular adenopathy and Abnormal EAC present excessive cerumen on the left Face/Nose/Sinus: Normal external nose present, Normal nasal mucous membranes and turbinates present, normal facial exam, sinuses nontender and face symmetric Face and sinus: normal facial exam, sinuses nontender and face symmetric Mouth: Yes Normal oral and palatal mucosa present, Yes lip normal, Yes tongue normal, Yes Normal salivary glands and ducts present, Yes oropharynx normal and Yes moist mucous membranes Teeth and gingiva: dentition normal Throat: posterior oropharynx normal, tonsils normal and uvula midline Eyes: General: appearance normal, both eyes and all related structures Alignment and Position: alignment normal and position normal Periorbital: periorbital findings normal Eyelids: eyelids normal Pupils: Equal, round and reactive pupils present Neck: Neck: normal visual inspection, full ROM, no lymphadenopathy and supple Chest: Chest palpation & inspection: normal inspection of the chest and normal palpation of entire chest wall Resp: Effort & Inspection: normal respiratory effort, able to speak in complete sentences and Actively coughing dry Auscultation: clear to auscultation bilaterally, no crackles, no rales, no rhonchi and no wheezes Cardio: Rate: tachycardic Rhythm: regular rhythm Heart sounds: S1 normal heart sound present and S2 normal heart sound present GI: Inspection: normal to inspection Skin: General skin exam: normal color and no rashes or lesions noted Neuro: General: patient oriented x3 and moves all extremities Cranial nerves: Yes Equal, round and reactive pupils present Speech: normal speech Gait exam (Neuro): Normal gait present Extrem: General: normal to inspection, full ROM and no edema Psych: Appearance: grossly normal and well kempt Mental Status: mental status grossly normal Speech and movement: Normal speech and movement present Affect: normal affect Attitude: cooperative Thought process: Normal thought process present Course Course Emergency Course: Discharge instructions reviewed with patient, as well as provided in writing per nursing staff. The instructions also include specific and strict return/GO TO THE ER as well as f/u information. All questions have been answered, and the patient deny any further questions with discharge and discharge plan. Portions of this record may have been created with voice recognition software Level of Care: Express Care Visit Vital Signs Vital signs: Vital Signs Temperature 36.1 C L 05/08/24 09:30 Pulse Rate 119 H 05/08/24 09:30 Respiratory Rate 16 05/08/24 09:30 Blood Pressure 127/85 05/08/24 09:30 Pulse Oximetry 98 05/08/24 09:30 Temperature 36.1 C L 05/08/24 09:30 Pulse Rate 119 H 05/08/24 09:30 Respiratory Rate 16 05/08/24 09:30 Blood Pressure 127/85 05/08/24 09:30 Pulse Oximetry 98 05/08/24 09:30 Reviewed MDM - URI/Sore Throat MDM Narrative Medical decision making narrative: Pt well hydrated appearing, in no respiratory distress, hemodynamically stable. Recommend supportive care. The patient is stable at time of discharge the clinical impression was discussed and the patient was given the opportunity to ask questions, which were addressed as completely as possible given the information available at present. Anticipatory guidance and return to care precautions were discussed and the importance of primary care follow-up was stressed and encouraged. The patient voiced understanding of the plan, indications to return, and the need for follow-up. Differential diagnosis considered: Bronchitis, Duenas virus, strep pharyngitis, allergic rhinitis, upper respiratory tract infection, sinusitis, rhinosinusitis, nasopharyngitis. viral pharyngitis, otitis media, otitis externa, otitis effusion, foreign body, cerumen impaction, viral syndrome, and influenza.? Exam findings show no acute concerns or changes; patient is non-toxic appearing and is in no distress.? Patient is appropriate for outpatient treatment and follow- up.? Medical Records Attestation: I reviewed the patient's medical records. Imaging Data Radiologist's impression: Clinical Indication: Cough PA and lateral views of the chest: Comparison: 04/20/2024 Findings: The lungs are clear, without evidence of focal consolidation or pleural effusion. Cardiomediastinal silhouette is within normal limits. Bones and soft tissues are unremarkable. Impression: Normal chest. Discharge Plan Discharge Clinical Impression: Bronchitis Patient Disposition: Home, Self-Care Condition: Stable Instructions: Acute Bronchitis (ED) Additional Instructions: Chest x-ray was negative for pneumonia Use Cough syrup as needed for cough. Use inhaler with spacer as needed. Other symptomatic treatments include: -Alternate Tylenol and Motrin per package directions for fever or pain: Tylenol 650-1000mg by mouth every 4-6 hours. Do not exceed 4000mg in 24 hours. Advil (Ibuprofen) 600 mg by mouth every 6 hours. Do not exceed 2400mg in 24 hours. 8 AM: Tylenol 11 AM: Ibuprofen 2 PM: Tylenol 5 PM: Ibuprofen 8 PM: Tylenol 11 PM: Ibuprofen 2 AM: Tylenol 5 AM: Ibuprofen -Antihistamine medication such as Benadryl at night and Zyrtec/Claritin/Natalie during the day can help improve symptoms. -Use Flonase twice a day for 5 days then daily to help reduce the inflammation and dry up your sinuses. -You can also use Sudafed or Mucinex. Be sure to drink plenty of water with these medications at least 8 ounces with every dose and it is important to drink 8 to 10 glasses of water per day. Water is a natural decongestant -Eat and drink things that are easy to swallow, like tea or soup, or popsicles. -Oral rinses such as: Salt water gargles and/or may use topical anesthetic (eg. Chloraseptic spray) or lozenges to relieve dryness or throat pain). -Frequent hand washing or hand motorcycle riding instructor is one of the best ways to prevent spread of infection. -Using a vaporizer or humidifier at night will also help thin secretions and help with coughing up phlegm. Call your Primary Care Doctor and make a follow-up appointment in 3 days. If your cough worsens, you develop a fever greater than 103, you develop shaking chills, a fast heartbeat, trouble breathing and/or feel you are are breathing much faster than usual, call your Primary Care Doctor or go to the ER. If you are having a hard time finding a physician please call our [facility] group liaison at [phone]. Patient Language: [place] Prescriptions: New (DME) Aerochamber MV Spacer See Rx Instructions .Route Qty: 1 0RF Rx Instructions: As directed promethazine-DM 6.25-15 mg/5 mL syrup 5 ml PO Q4-6H PRN (Reason: cough) Qty: 118 0RF albuterol sulfate 90 mcg/actuation HFA aerosol inhaler 2 puff inhalation QID PRN (Reason: shortness of breath or wheezing) Qty: 6.7 0RF Follow-up/Referrals: Alon Bradshaw MD [Physician] - 3 Days ( establish care) Stand Alone Forms: Work/School Release IP Time of Disposition: 10:01
[2024-05-08 09:30] VITALS: BP 127/85; PULSE 119; RESP 16; TEMP 36.1; O2SAT 98
== END 2024-05-08 10:11 | disposition home or self-care (01) ==
PROVIDERS: Emergency Provider Nurse Practitioner Family
DX: J40 Bronchitis, not specified as acute or chronic (principal)
CPT/HCPCS: 71046; 99213; G0463

== ENCOUNTER 2024-05-08 20:11 | Emergency (ER) | payer OTHER, SELFPAY ==
--- OUTSIDE RECORDS SUMMARY | 2024-05-08 20:14 | XMS_ITS | Clinical Summary ---
Author Organization [facility] Address [address] [place] [address] Care Team Providers Care Tool Crib Lead Name Role Phone Unavailable Primary Care Provider Unavailabl e Allergies No known active allergies Medications fludrocortisone (FLORINEF) 0.1 mg tablet Take 1 Tablet (0.1 mg) by mouth once in the morning and once at bedtime. 60 Tablet 2 02/23/2023 12:46 PM CHAUFFEUR 3 Active ipratropium bromide (ATROVENT) 21 mcg (0.03 %) [place], Non-Aerosol Administer 2 spray(s) in each nostril 3 times a day 30 mL 02/04/2023 1:42 PM CHAUFFEUR 3 Active cyclobenzaprine (FLEXERIL) 10 mg tablet Take 1 Tablet (10 mg) by mouth 2 times daily as needed for muscle spasm. 14 Tablet 03/14/2023 2:56 PM CHAUFFEUR 4 Active nystatin (MYCOSTATIN) 100,000 unit/gram Cream Apply topically 3 (three) times a day. Use for two full days after rash has resolved. 30 Gram 06/30/2023 3:21 PM CDT 4 Active amoxicillin (AMOXIL) 875 mg tablet Take 1 tablet (875 mg total) by mouth 2 (two) times a day for 10 days 20 Tablet 07/03/2023 2:32 PM CDT 4 Active cephALEXin (KEFLEX) 500 mg capsule Take 1 capsule by mouth every 6 hours 28 Capsule 12/20/2023 5:48 PM CDT 4 Active oxyCODONE-aceta minophen (PERCOCET) 5-325 mg tablet Take 0.5-1 Tablets by mouth every 6 hours as needed for pain. Max Daily Amount: 4 Tablets 14 Tablet 01/09/2024 10:41 AM CHAUFFEUR 4 Active predniSONE (DELTASONE) 20 mg tablet Take 2 Tablets (40 mg) by mouth daily in the morning with food for 5 days. 10 Tablet 04/20/2024 11:16 AM CHAUFFEUR 5 Active codeine-guaiFEN esin (ROBITUSSIN-AC) 10-100 mg/5 mL Liquid Take 10 mL by mouth every 6 hours as needed for cough. 200 mL 04/20/2024 11:16 AM CHAUFFEUR 5 Active albuterol sulfate HFA 90 mcg/actuation aerosol inhaler Take 2 Puffs by inhalation 4 times daily as needed for shortness of breath or wheezing. 6.7 Gram 05/08/2024 10:43 AM CDT 5 Active promethazine-de xtromethorphan (PHENERGAN-DM) 6.25-15 mg/5 mL syrup Take 5 mL by mouth every 4-6 hours as needed for cough. 118 mL 05/08/2024 10:43 AM CDT 5 Active inhalational spacing device (Aerochamber MV) Spacer Use as directed 1 Each 05/08/2024 10:43 AM CDT 5 Active clarithromycin (BIAXIN) 500 mg tablet Take 1 tablet by mouth twice daily for 10 days 20 Tablet 05/08/2024 4:07 PM CDT 5 Active Encounters Date Type Department Care Team Description 04/22/2024 External Device Data [facility] Provider, Abstract 04/16/2024 External Device Data [facility] Provider, Abstract 03/19/2024 External Device Data [facility] Provider, Abstract from Last 3 Months Social History Tobacco Use Types Packs/Day Years Used Date Smoking Tobacco: Never Assessed Sex and Gender Information Value Date Recorded Sex Assigned at Not on file Legal Sex Male 9:44 AM CHAUFF[facility]UR Gender Identity Not on file Sexual Orientation Not on file Plan of Treatment Health Maintenance Due Date Last Done Comments HPV VACCINES (1 - Male 3-dos e series) 2016 DTAP/TDAP/TD VACCINES (1 - Tdap) 2020 HEPATITIS B VACCINES (1 of 3 - 19+ 3-dose series) 2020 INFLUENZA VACCINE (#1) 2023 PNEUMOCOCCAL VACCINE 0-49 YEARS Aged Out No longer eligible based on patient's age to complete [place] [address] RX [facility] [employer]
--- OUTSIDE RECORDS SUMMARY | 2024-05-08 20:14 | XMS_ITS | Referral Summary ---
Author Organization [facility] [place] [address] [facility] lt Address [address] [facility] [place] [address] Care Team Providers Care Tar Distillation Supervisor Name Role Phone Unknown, Notinfile Primary Care Provider Unavail able Allergies No known active allergies Medications fludrocortisone 0.1 mg tablet Take 1 tablet (0.1 mg total) by mouth 2 (two) times a day 3 Active nystatin creamIndication s:Intertrigo Apply topically 3 (three) times a day Use for two full days after rash has resolved. 30 g 4 Active ipratropium (ATROVENT) 21 mcg (0.03 %) nasal spray 3 Active cyclobenzaprine (FLEXERIL) 10 mg tablet Take 1 tablet (10 mg total) by mouth 2 (two) times a day as needed 4 Active Active Problems No known active problems Social History Tobacco Use Types Packs/Day Years Used Date Smoking Tobacco: Never Tobacco Cessation:Counseling Given: Not Answered Sex and Gender Information Value Date Recorded Sex Assigned at Not on file Legal Sex Male 11:05 AM CDT Gender Identity Not on file Sexual Orientation Not on file Last Filed Vital Signs Vital Sign Reading Time Taken Comments Blood Pressure 118/82 08/23/2023 9:50 AM CDT Pulse 96 08/23/2023 9:50 AM CDT Temperature 37.1 C (98.7 F) 08/23/2023 9:50 AM CDT Respiratory Rate 17 08/23/2023 9:50 AM CDT Oxygen Saturation 98% 08/23/2023 9:50 AM CDT Inhaled Oxygen Concentration - - Weight 115.2 kg (254 lb) 08/23/2023 9:50 AM CDT Height 180.3 cm (5' 11 ) 08/23/2023 9:50 AM CDT Body Mass Index 35.43 08/23/2023 9:50 AM CDT Plan of Treatment Not on file Insurance [facility] CHO[facility] PL[facility] Care Teams Tar Distillation Supervisor Relationship Specialty Start Date End Date Unknown, Notinfile PCP - General 06/08/23
--- OUTSIDE RECORDS SUMMARY | 2024-05-08 20:14 | XMS_ITS | Clinical Summary ---
Author Organization [facility] [place] [address] [facility] lt Address [address] [facility] [place] [address] Care Team Providers Care Founding Partner Name Role Phone Unknown, Notinfile Primary Care [...] on file Sexual Orientation Not on file Obstetrics History Last Filed Vital Signs Vital Sign Reading [...] 08/23/2023 9:50 AM CDT Plan of Treatment Health Maintenance Due Date Last Done Comments Depression Screening 2001 Hepatitis C Screening 2001 DTaP/Tdap/Td Vaccine (1 - Tdap) 2012 Varicella Vaccines (1 of 2 - 13+ 2-dose series) 2014 HPV Vaccines (1 - Male 3-dos e series) 2016 Meningococcal B Vaccine (1 o f 2 - Standard) 2017 Hepatitis B Screening 11/06/2019 Regular Well Visit/Exam 18-64 11/06/2019 Influenza Vaccine (#1) 2023 Pneumococcal vaccine <65 Aged Out No longer eligible based on patient's age to complete [place] [address] [facility] [place] [address] Care Teams Founding Partner Relationship Specialty Start Date End Date Unknown, Notinfile PCP - General 06/08/23
[2024-05-08 20:16] VITALS: BP 146/88; PULSE 88; RESP 18; TEMP 36.8
[2024-05-08 22:06] VITALS: O2SAT 100
--- NOTE | 2024-05-08 22:28 | ED.GENADULT ---
HPI - General Adult General Chief complaint: Shortness of Breath/Dyspnea Stated complaint: Bronchitis-poss pnuemonia Time Seen by Provider: 05/08/24 22:03 History of Present Illness HPI narrative: This is a 23-year-old male in the with high functioning autism presenting for cough. Patient has had a cough for 4 days. He has chest pain when he coughs. He has not had any fevers sore throat shortness of breath nausea vomiting or diarrhea. Patient thought that he had heard a weird sound when he was breathing earlier that made him concerned prompted him to come to the emergency department. Patient has been seen multiple facilities over the last 3 days with identical presentation Related Data Allergies Allergy/AdvReac Type Severity Reaction Status Date / Time adhesive AdvReac Unknown Rash Verified 05/08/24 09:34 [facility] Past Medical History Medical History Autism spectrum disorder Surgical History Surgical History History of incision and drainage 01/09/24 incision and drainage complex pilonidal cyst. Dr. Mujica Family History Family History Mother Thyroid cancer Social History Social History Smoking status: Never smoker Alcohol intake: current Alcohol use details: Occasional/social alcohol use Substance use: never Do You Feel Safe in your Home?: Yes Lack of Transportation: No Lack of Food: Never True Current Housing: I Have Housing Concerned About Future Housing: No Difficulty Paying Gas/Electric Bills: No Difficulty Paying for Meds: No Currently Unemployed: No Education: High School Diploma/GED Difficulty w/ Childcare or Family Care: No Living arrangements: with family Gender identity (if verbalized by the patient): Male Spiritual care concerns: No Exam Narrative: APPEARANCE: No apparent distress. Very well-appearing Head: atraumatic. EYES: EOMI, NOSE: Atraumatic NECK: Trachea midline RESPIRATORY: No increased rate of breathing clear to auscultation CARDIOVASCULAR: RRR, no peripheral edema ABDOMINAL: Non-distended soft nontender no guarding rebound MUSCULOSKELETAl: No obvious deformities NEURO: Alert. Moving 4/4 extremities SKIN:: Warm, dry. Normal color PSYCHIATRIC: Normal affect Course Vital Signs Vital signs: Vital Signs Temperature 98.2 F 05/08/24 20:16 Pulse Rate 88 05/08/24 20:16 Respiratory Rate 18 05/08/24 20:16 Blood Pressure 146/88 H 05/08/24 20:16 Temperature 98.2 F 05/08/24 20:16 Pulse Rate 88 05/08/24 20:16 Respiratory Rate 18 05/08/24 20:16 Blood Pressure 146/88 H 05/08/24 20:16 Pulse Oximetry 100 05/08/24 22:06 Oxygen Delivery Room Air 05/08/24 22:06 Medical Decision Making MDM Narrative Medical decision making narrative: -Course: A pleasant 23-year-old male with autism presenting with concerns over his persistent cough. Been going on for 4 days but overall he is very well-appearing. He has had negative chest x-rays and viral swabs performed. I sat with the patient's mother at length and explained the clinical course of viral syndrome/bronchitis and they are reassured. Do not think any additional testing is warranted this time. Patient will be discharged with return precautions. -DDX includes but is not limited to: Viral syndrome, bronchitis, pneumonia Vital Signs Vital Signs: Vital Signs Temperature 98.2 F 05/08/24 20:16 Pulse Rate 88 05/08/24 20:16 Respiratory Rate 18 05/08/24 20:16 Blood Pressure 146/88 H 05/08/24 20:16 Temperature 98.2 F 05/08/24 20:16 Pulse Rate 88 05/08/24 20:16 Respiratory Rate 18 05/08/24 20:16 Blood Pressure 146/88 H 05/08/24 20:16 Pulse Oximetry 100 05/08/24 22:06 Oxygen Delivery Room Air 05/08/24 22:06 Discharge Plan Discharge Clinical Impression: Bronchitis Patient Disposition: Home, Self-Care Condition: Stable Instructions: Antibiotic Form, Acute Bronchitis (ED) Additional Instructions: Please follow-up with your primary care physician as needed. If you develop fevers, chest pain or feel your condition is getting worse please return to the ED re-evaluation. Patient Language: Bahamian Prescriptions: No Action (DME) Aerochamber MV Spacer See Rx Instructions .Route Qty: 1 0RF Rx Instructions: As directed promethazine-DM 6.25-15 mg/5 mL syrup 5 ml PO Q4-6H PRN (Reason: cough) Qty: 118 0RF albuterol sulfate 90 mcg/actuation HFA aerosol inhaler 2 puff inhalation QID PRN (Reason: shortness of breath or wheezing) Qty: 6.7 0RF Follow-up/Referrals: PHYSICIAN,RETAIL MARKETING COORDINATOR [Primary Care Provider] -
--- OUTSIDE RECORDS SUMMARY | 2024-05-08 22:46 | XMS_ITS | Clinical Summary ---
Author Organization [facility] [place] [address] [facility] lt Address [address] [place] [address] Care Team Providers Care Community Health Director Name Role Phone Unknown, Notinfile Primary Care [...] patient's age to complete [place] [address] [facility] CHOICE [facility] H[facility]/PPO Address: [facility] [address] [place] [address] Care Teams Community Health Director Relationship Specialty Start Date End Date Unknown, Notinfile PCP - General 06/08/23
--- OUTSIDE RECORDS SUMMARY | 2024-05-08 22:46 | XMS_ITS | Referral Summary ---
Author Organization [facility] [place] [address] [facility] lt Address [address] [facility] [place] [address] Care Team Providers Care Porter Sample Case Name Role Phone Unknown, Notinfile Primary Care [...] Plan of Treatment Not on file Insurance [facility] [place] [address] Care Teams Porter Sample Case Relationship Specialty Start Date End Date Unknown, Notinfile PCP - General 06/08/23
--- OUTSIDE RECORDS SUMMARY | 2024-05-08 22:46 | XMS_ITS | Clinical Summary ---
Author Organization [facility] Address [address] [place] [address] Care Team Providers Care Post Closing Specialist Name Role Phone Unavailable Primary Care Provider Unavailabl e Allergies No known active allergies Medications fludrocortisone (FLORINEF) 0.1 mg tablet Take 1 Tablet (0.1 mg) by mouth once in the morning and once at bedtime. 60 Tablet 2 02/23/2023 12:46 PM CLIENT SERVICE AND CONSULTING MANAGER 3 Active ipratropium bromide (ATROVENT) 21 mcg (0.03 %) [place], Non-Aerosol Administer 2 spray(s) in each nostril 3 times a day 30 mL 02/04/2023 1:42 PM CLIENT SERVICE AND CONSULTING MANAGER 3 Active cyclobenzaprine (FLEXERIL) 10 mg tablet Take 1 Tablet (10 mg) by mouth 2 times daily as needed for muscle spasm. 14 Tablet 03/14/2023 2:56 PM CLIENT SERVICE AND CONSULTING MANAGER 4 Active nystatin (MYCOSTATIN) 100,000 unit/gram Cream [...] 4 Tablets 14 Tablet 01/09/2024 10:41 AM CLIENT SERVICE AND CONSULTING MANAGER 4 Active predniSONE (DELTASONE) 20 mg tablet Take 2 Tablets (40 mg) by mouth daily in the morning with food for 5 days. 10 Tablet 04/20/2024 11:16 AM CLIENT SERVICE AND CONSULTING MANAGER 5 Active codeine-guaiFEN esin (ROBITUSSIN-AC) 10-100 mg/5 mL Liquid Take 10 mL by mouth every 6 hours as needed for cough. 200 mL 04/20/2024 11:16 AM CLIENT SERVICE AND CONSULTING MANAGER 5 Active albuterol sulfate HFA 90 mcg/actuation [...] on file Legal Sex Male 9:44 AM CLIENT SERVICE AND CONSULTING MANAGER Gender Identity Not on file Sexual Orientation [...] patient's age to complete this [place] [address] RX [facility] [employer]
== END 2024-05-08 22:52 | disposition home or self-care (01) ==
LOC: ANHED 22:45
PROVIDERS: Emergency Provider Emergency Medicine
DX: J40 Bronchitis, not specified as acute or chronic (principal); F84.0 Autistic disorder
CPT/HCPCS: 99281

== ENCOUNTER 2024-09-11 17:57 | Emergency (ER) | payer OTHER, SELFPAY ==
--- NOTE | ~2024-09-11 | CT_ITS ---
EXAMINATION: CT brain wo con DATE: 09/11/2024 22:32 INDICATION: head injury x 2 . TECHNIQUE: Computed tomography (CT) of the head was performed without intravenous contrast. The mA wa s adjusted according to patient size. Iterative reconstruction technique was employed. The dose-lengt h product was 681.00 mGy-cm. COMPARISON: None. FINDINGS: Mild motion artifact inferiorly. No acute intracranial hemorrhage or extra-axial fluid collection. No hydrocephalus, mass, or herniation. No acute ischemic infarct. Unremarkable dural venous sinus attenuation. No acute osseous abnormality. Retention cyst or polyp in the left posterior ethmoid sinus, the remaining aerated spaces are clear. IMPRESSION: No acute intracranial process. Reviewed, dictated and finalized at location K.
--- OUTSIDE RECORDS SUMMARY | 2024-09-11 17:59 | XMS_ITS | Clinical Summary ---
Author Organization [facility] 163 [facility] lt Address [address] anthony [facility] [address] Care Team Providers Care Balance And Hairspring Assembler Name Role Phone Unknown, Notinfile Primary Care [...] 9:50 AM CDT Height 180.3 cm (5' 11) 08/23/2023 9:50 AM CDT Body Mass Index [...] Well Visit/Exam 18-64 11/06/2019 Influenza Vaccine (#1) 2024 Pneumococcal vaccine <65 Aged Out No longer eligible based on patient's age [place] [address] [facility] CHOICE PLUS Care Teams Balance And Hairspring Assembler Relationship Specialty Start Date End Date Unknown, Notinfile PCP - General 06/08/23
--- OUTSIDE RECORDS SUMMARY | 2024-09-11 17:59 | XMS_ITS | Referral Summary ---
Author Organization [place] 163 [facility] lt Address [address] anthony [place] [address] Care Team Providers Care Vice President Business Development Name Role Phone Unknown, Notinfile Primary Care [...] Plan of Treatment Not on file Insurance [facility] CHOICE PLUS Care Teams Vice President Business Development Relationship Specialty Start Date End Date Unknown, Notinfile PCP - General 06/08/23
--- OUTSIDE RECORDS SUMMARY | 2024-09-11 17:59 | XMS_ITS | Clinical Summary ---
Author Organization [facility] Address [address] [place] [address] Care Team Providers Care Tire Tester Name Role Phone Unavailable Primary Care Provider Unavailabl e Allergies No known active allergies Medications fludrocortisone (FLORINEF) 0.1 mg tablet Take 1 Tablet (0.1 mg) by mouth once in the morning and once at bedtime. 60 Tablet 2 02/23/2023 12:46 PM MOLD MAKER 3 Active ipratropium bromide (ATROVENT) 21 mcg (0.03 %) [place], Non-Aerosol Administer 2 spray(s) in each nostril 3 times a day 30 mL 02/04/2023 1:42 PM MOLD MAKER 3 Active cyclobenzaprine (FLEXERIL) 10 mg tablet Take 1 Tablet (10 mg) by mouth 2 times daily as needed for muscle spasm. 14 Tablet 03/14/2023 2:56 PM MOLD MAKER 4 Active nystatin (MYCOSTATIN) 100,000 unit/gram Cream [...] 4 Tablets 14 Tablet 01/09/2024 10:41 AM MOLD MAKER 4 Active predniSONE (DELTASONE) 20 mg tablet Take 2 Tablets (40 mg) by mouth daily in the morning with food for 5 days. 10 Tablet 04/20/2024 11:16 AM MOLD MAKER 5 Active codeine-guaiFEN esin (ROBITUSSIN-AC) 10-100 mg/5 mL Liquid Take 10 mL by mouth every 6 hours as needed for cough. 200 mL 04/20/2024 11:16 AM MOLD MAKER 5 Active albuterol sulfate HFA 90 mcg/actuation [...] Encounters Date Type Department Care Team Description 08/12/2024 External Device Data [facility] ABSTRACTION Provider, Abstract 07/22/2024 External Device Data [facility] ABSTRACTION Provider, Abstract 07/17/2024 External Device Data [facility] ABSTRACTION Provider, Abstract 07/16/2024 External Device Data [facility] ABSTRACTION Provider, Abstract 07/15/2024 External Device Data [facility] ABSTRACTION Provider, Abstract from Last 3 Months Social History Tobacco Use Types Packs/Day Years Used Date Smoking Tobacco: Never Assessed Sex and Gender Information Value Date Recorded Sex Assigned at Not on file Legal Sex Male 9:44 AM MOLD MAKER Gender Identity Not on file Sexual Orientation Not on file Plan of Treatment Health Maintenance Due Date Last Done Comments HPV VACCINES (1 - Male 3-dose series) 2016 DTAP/TDAP/TD VACCINES (1 - Tdap) 2020 HEPATITIS B VACCINES (1 of 3 - 19+ 3-dose series) 10/27 INFLUENZA VACCINE (#1) 2024 Insurance RX [facility] [employer]
[2024-09-11 18:21] VITALS: BP 135/85; PULSE 82; RESP 16; TEMP 37.1; O2SAT 100
--- OUTSIDE RECORDS SUMMARY | 2024-09-11 22:35 | XMS_ITS | Clinical Summary ---
Author Organization [facility] 163 [facility] lt Address [address] [place] [address] Care Team Providers Care Cement Storage Worker Name Role Phone Unknown, Notinfile Primary Care [...] patient's age to complete [place] [address] [facility] CHOICE PLUS Care Teams Cement Storage Worker Relationship Specialty Start Date End Date Unknown, Notinfile PCP - General 06/08/23
--- OUTSIDE RECORDS SUMMARY | 2024-09-11 22:35 | XMS_ITS | Referral Summary ---
Author Organization [facility] [address] [facility] lt Address [address] [place]ony [place] [address] Care Team Providers Care Security Screener Name Role Phone Unknown, Notinfile Primary Care [...] Plan of Treatment Not on file Insurance [facility] CHOICE PL[facility] Address: [facility] [address] [place] [address] Care Teams Security Screener Relationship Specialty Start Date End Date Unknown, Notinfile PCP - General 06/08/23
--- OUTSIDE RECORDS SUMMARY | 2024-09-11 22:35 | XMS_ITS | Clinical Summary ---
Author Organization [facility] Address [address] [place] [address] Care Team Providers Care Government Operations Consultant Name Role Phone Unavailable Primary Care Provider Unavailabl e Allergies No known active allergies Medications fludrocortisone (FLORINEF) 0.1 mg tablet Take 1 Tablet (0.1 mg) by mouth once in the morning and once at bedtime. 60 Tablet 2 02/23/2023 12:46 PM SUPERVISOR PIGMENT MAKING 3 Active ipratropium bromide (ATROVENT) 21 mcg (0.03 %) [place], Non-Aerosol Administer 2 spray(s) in each nostril 3 times a day 30 mL 02/04/2023 1:42 PM SUPERVISOR PIGMENT MAKING 3 Active cyclobenzaprine (FLEXERIL) 10 mg tablet Take 1 Tablet (10 mg) by mouth 2 times daily as needed for muscle spasm. 14 Tablet 03/14/2023 2:56 PM SUPERVISOR PIGMENT MAKING 4 Active nystatin (MYCOSTATIN) 100,000 unit/gram Cream [...] 4 Tablets 14 Tablet 01/09/2024 10:41 AM SUPERVISOR PIGMENT MAKING 4 Active predniSONE (DELTASONE) 20 mg tablet Take 2 Tablets (40 mg) by mouth daily in the morning with food for 5 days. 10 Tablet 04/20/2024 11:16 AM SUPERVISOR PIGMENT MAKING 5 Active codeine-guaiFEN esin (ROBITUSSIN-AC) 10-100 mg/5 mL Liquid Take 10 mL by mouth every 6 hours as needed for cough. 200 mL 04/20/2024 11:16 AM SUPERVISOR PIGMENT MAKING 5 Active albuterol sulfate HFA 90 mcg/actuation [...] on file Legal Sex Male 9:44 AM SUPERVISOR PIGMENT MAKING Gender Identity Not on file Sexual Orientation Not on file Plan of Treatment Health Maintenance Due Date Last Done Comments HPV VACCINES (1 - Male 3-dose series) 2016 DTAP/TDAP/TD VACCINES (1 - Tdap) 2020 HEPATITIS B VACCINES (1 of 3 - 19+ 3-dose series) 10/27 INFLUENZA VACCINE (#1) 2024 Insurance RX [facility]
--- NOTE | 2024-09-11 23:16 | ED_ITS ---
HPI - General Adult General Chief complaint: Unspecified Stated complaint: 2 concussions back to back Time Seen by Provider: 09/11/24 21:47 History of Present Illness HPI narrative: Patient is a 23-year-old male who presents to the ER after hitting the top of his head on his vehicle. He reports this is ?my 7th concussion in my life and would like a head CT scan. Patient reports the event took place around 4:00 p.m. He took ibuprofen afterwards, but reports he started having symptoms approximately 1-1/2 hours after the event. Patient denies any loss of consciousness, vomiting, altered mental status, or severe headache. He rates his pain at a 3.5/10. Patient endorses photophobia and ?numbness around my lips. He endorses a history of heart palpitations and autism. Related Data Allergies Allergy/AdvReac Type Severity Reaction Status Date / Time adhesive AdvReac Unknown Rash Verified 05/08/24 09:34 Review of Systems Review of Systems: All systems reviewed & are unremarkable except as noted in HPI and below PMFSH Past Medical History Medical History Autism spectrum disorder Surgical History Surgical History History of incision and drainage 01/09/24 incision and drainage complex pilonidal cyst. Dr. Mujica Family History Family History Mother Thyroid cancer Social History Social History Smoking status: Never smoker Alcohol intake: current Alcohol use details: Occasional/social alcohol use Substance use: never Do You Feel Safe in your Home?: Yes Lack of Transportation: No Lack of Food: Never True Current Housing: I Have Housing Concerned About Future Housing: No Difficulty Paying Gas/Electric Bills: No Difficulty Paying for Meds: No Currently Unemployed: No Education: High School Diploma/GED Difficulty w/ Childcare or Family Care: No Living arrangements: with family Gender identity (if verbalized by the patient): Male Spiritual care concerns: No Exam Narrative: GENERAL: Well appearing, well-nourished, non-toxic, in no acute distress. HEAD: Normocephalic, atraumatic. NECK: Supple. No adenopathy, no masses. RESPIRATORY: Airway patent, respirations nonlabored. Clear to auscultation bilaterally, no rales, rhonchi, wheezing. CARDIOVASCULAR: Regular rate and rhythm without murmurs, rubs, or gallops. Peripheral pulses 2+ and equal bilaterally. ABDOMINAL: Soft, nontender, nondistended, no hepatosplenomegaly. Normoactive BS. MUSCULOSKELETAL: Moves all extremities. Strength/ROM intact without gross deformities. SKIN: Warm, dry, normal color. No rashes. NEURO: A&O X3. Speech clear. Cranial nerves II-XII intact. No ataxic movements. PSYCHIATRIC: Appropriate mood and affect. Normal interaction. Course Vital Signs Vital signs: Vital Signs Temperature 37.1 C 09/11/24 18:21 Pulse Rate 82 09/11/24 18:21 Respiratory Rate 16 09/11/24 18:21 Blood Pressure 135/85 09/11/24 18:21 Pulse Oximetry 100 09/11/24 18:21 Oxygen Delivery Room Air 09/11/24 18:21 Temperature 37.1 C 09/11/24 18:21 Pulse Rate 82 09/11/24 18:21 Respiratory Rate 16 09/11/24 18:21 Blood Pressure 135/85 09/11/24 18:21 Pulse Oximetry 100 09/11/24 18:21 Oxygen Delivery Room Air 09/11/24 18:21 Medical Decision Making MDM Narrative Medical decision making narrative: Patient is a 23-year-old male who presents to the ER after hitting the top of his head on his vehicle. He reports this is ?my 7th concussion in my life and would like a head CT scan. Patient reports the event took place around 4:00 p.m. He took ibuprofen afterwards, but reports he started having symptoms approximately 1-1/2 hours after the event. Patient denies any loss of consciousness, vomiting, altered mental status, or severe headache. He rates his pain at a 3.5/10. Patient endorses photophobia and ?numbness around my lips. He endorses a history of heart palpitations and autism. Imaging Ordered: CT head scan (per patient's request) Medications Ordered: Ibuprofen 800 mg p.o., patient declined Toradol Results: CT head scan indicates Mild motion artifact inferiorly. No acute intracranial hemorrhage or extra-axial fluid collection. No hydrocephalus, mass, or herniation. No acute ischemic infarct. Unremarkable dural venous sinus attenuation. No acute osseous abnormality. Retention cyst or polyp in the left posterior ethmoid sinus, the remaining aerated spaces are clear. Diagnosis: Concussion without loss of consciousness Patient Education/Shared MDM: Results of imaging shared with patient. He is in agreement with plan for ibuprofen administration here in the ER. Patient strongly advised to maintain hydration status upon discharge and establish care with a PCP as soon as possible. He will be discharged home with a prescription for Zofran. Strict return precautions provided. Patient verbalized understanding and is in agreement with plan. Vital signs stable at time of discharge. All questions answered. Differential Diagnosis Differential Diagnosis: Concussion without loss of consciousness, subdural hematoma, epidural hematoma Vital Signs Vital Signs: Vital Signs Temperature 37.1 C 09/11/24 18:21 Pulse Rate 82 09/11/24 18:21 Respiratory Rate 16 09/11/24 18:21 Blood Pressure 135/85 09/11/24 18:21 Pulse Oximetry 100 09/11/24 18:21 Oxygen Delivery Room Air 09/11/24 18:21 Temperature 37.1 C 09/11/24 18:21 Pulse Rate 82 09/11/24 18:21 Respiratory Rate 16 09/11/24 18:21 Blood Pressure 135/85 09/11/24 18:21 Pulse Oximetry 100 09/11/24 18:21 Oxygen Delivery Room Air 09/11/24 18:21 Imaging Data Attestation: I personally reviewed and interpreted this imaging study as follows: Radiologist's impression: Impressions Head CT 09/11/24 22:35 IMPRESSION: No acute intracranial process. Discharge Plan Discharge Clinical Impression: Concussion without loss of consciousness Patient Disposition: Home Condition: Stable Instructions: Antibiotic Form Additional Instructions: Please return to the ER with any worsening symptoms. Establish care with a primary care provider as soon as possible. You may take Tylenol and ibuprofen together as needed for pain control. You may also take Zofran as directed for nausea. Patient Language: South African Prescriptions: New ondansetron 4 mg tablet,disintegrating 4 mg PO Q8H PRN (Reason: nausea and vomiting) Qty: 10 0RF No Action (DME) Aerochamber MV Spacer See Rx Instructions .Route Qty: 1 0RF Rx Instructions: As directed promethazine-DM 6.25-15 mg/5 mL syrup 5 ml PO Q4-6H PRN (Reason: cough) Qty: 118 0RF albuterol sulfate 90 mcg/actuation HFA aerosol inhaler 2 puff inhalation QID PRN (Reason: shortness of breath or wheezing) Qty: 6.7 0RF Follow-up/Referrals: Alexander Berrios MD [Physician] - (primary care provider) PHYSICIAN,DIRECTOR OF STUDENT FINANCIAL SERVICES [Primary Care Provider] - Time of Disposition: 23:29
[2024-09-11] MEDS: IBUPROFEN 400 MG TABLET 800 MG PO (23:35)
[2024-09-11 23:42] VITALS: BP 112/68; PULSE 78; RESP 16; O2SAT 100
== END 2024-09-11 23:44 | disposition home or self-care (01) ==
PROVIDERS: Emergency Provider Registered Nurse
DX: S06.0X0A Concussion without loss of consciousness, initial encounter (principal); F84.0 Autistic disorder; W22.8XXA Striking against or struck by other objects, initial encounter
CPT/HCPCS: 70450; 99284; A9270

== ENCOUNTER 2025-02-16 20:05 | Emergency (ER) | payer OTHER, SELFPAY ==
--- NOTE | ~2025-02-16 | CT_ITS ---
EXAMINATION: CT BRAIN W/O DATE: 02/16/2025 20:27 INDICATION: Head injury. TECHNIQUE: Computed tomography (CT) of the head was performed without intravenous contrast. The dose-length product was 605.33 mGy-cm. Automated exposure control and iterative reconstruction technique were employed. COMPARISON: No prior studies for comparison. FINDINGS: Normal brain parenchymal volume for age. Normal boss-white differentiation. No acute intracranial hemorrhage, infarction, mass or mass effect. No ventriculomegaly or midline shift. Midline sagittal images demonstrate a normal corpus callosum, craniovertebral junction and sella turcica. Basilar cisterns are patent. Paranasal sinuses and mastoids are pneumatized. No depressed skull fractures. IMPRESSION: 1. No acute intracranial abnormality. Reviewed, dictated and finalized at location O. [place] MANAGER
--- OUTSIDE RECORDS SUMMARY | 2025-02-16 20:07 | XMS_ITS | Clinical Summary ---
Author Organization [facility] Address [address] [place] [address] Care Team Providers Care Adjudication Specialist Name Role Phone Unavailable Primary Care Provider Unavailabl e Allergies No known active allergies Medications fludrocortisone (FLORINEF) 0.1 mg tablet Take 1 Tablet (0.1 mg) by mouth once in the morning and once at bedtime. 60 Tablet 2 02/23/2023 12:46 PM ASPHALT LAYER 3 Active ipratropium bromide (ATROVENT) 21 mcg (0.03 %) [place], Non-Aerosol Administer 2 spray(s) in each nostril 3 times a day 30 mL 02/04/2023 1:42 PM ASPHALT LAYER 3 Active cyclobenzaprine (FLEXERIL) 10 mg tablet Take 1 Tablet (10 mg) by mouth 2 times daily as needed for muscle spasm. 14 Tablet 03/14/2023 2:56 PM ASPHALT LAYER 4 Active nystatin (MYCOSTATIN) 100,000 unit/gram Cream [...] 4 Tablets 14 Tablet 01/09/2024 10:41 AM ASPHALT LAYER 4 Active predniSONE (DELTASONE) 20 mg tablet Take 2 Tablets (40 mg) by mouth daily in the morning with food for 5 days. 10 Tablet 04/20/2024 11:16 AM ASPHALT LAYER 5 Active codeine-guaiFEN esin (ROBITUSSIN-AC) 10-100 mg/5 mL Liquid Take 10 mL by mouth every 6 hours as needed for cough. 200 mL 04/20/2024 11:16 AM ASPHALT LAYER 5 Active albuterol sulfate HFA 90 mcg/actuation [...] Tablet 05/08/2024 4:07 PM CDT 5 Active ondansetron (ZOFRAN ODT) 4 mg Tablet, Rapid Dissolve Dissolve 1 Tablet (4 mg) by mouth every 8 hours as needed for nausea and vomiting. 10 Tablet 09/12/2024 2:23 PM CDT 5 Active Encounters Date Type Department Care Team Description 02/10/2025 External Device Data ST[facility] ABSTRACTION Provider, Abstract 01/27/2025 External Device Data ST[facility] ABSTRACTION Provider, Abstract 12/16/2024 External Device Data STL ABSTRACTION Provider, Abstract from Last 3 Months Social History Tobacco Use Types Packs/Day Years Used Date Smoking Tobacco: Never Assessed Sex and Gender Information Value Date Recorded Sex Assigned at Not on file Legal Sex Male 9:44 AM ASPHALT LAYER Gender Identity Not on file Sexual Orientation Not on file Plan of Treatment Health Maintenance Due Date Last Done Comments HPV VACCINES (1 - Male 3-dose series) 2016 DTAP/TDAP/TD VACCINES (1 - Tdap) 2020 HEPATITIS B VACCINES (1 of 3 - 19+ 3-dose series) 10/27 INFLUENZA VACCINE (#1) 2024 Insurance RX [facility] [employer] RX [employer] RX [employer] (INTERNAL) [facility]
--- OUTSIDE RECORDS SUMMARY | 2025-02-16 20:07 | XMS_ITS | Clinical Summary ---
Author Organization [facility] [place] 163 [facility] Address [address] [place] [facility] [address] Care Team Providers Care Coat Padder Name Role Phone Unknown, Notinfile Primary Care [...] patient's age to complete [place] [address] [facility] CHOICE PLUS [facility] H[facility]/PPO Address: [facility] [address] [place] [address] Care Teams Coat Padder Relationship Specialty Start Date End Date Unknown, Notinfile PCP - General 06/08/23
[2025-02-16 20:09] VITALS: BP 131/58; PULSE 51; RESP 14; TEMP 36.7; O2SAT 99
[2025-02-16 23:16] VITALS: BP 127/62; PULSE 74; RESP 16; O2SAT 98
--- NOTE | 2025-02-17 03:16 | ED.GENADULT ---
HPI - General Adult General Chief complaint: Head Injury Stated complaint: hit in head at work Time Seen by Provider: 02/16/25 21:56 History of Present Illness HPI narrative: 24-year-old male presenting after a head injury at work today. Patient was seen by urgent care and urgent care sent him over to the ED advising a CT head. Patient presently reporting dizziness and a headache. Denies loss of consciousness, weakness, nausea/vomiting, chest pain or shortness of breath. Related Data Allergies Allergy/AdvReac Type Severity Reaction Status Date / Time adhesive AdvReac Unknown Rash Verified 02/16/25 20:06 Review of Systems Review of Systems: All systems reviewed & are unremarkable except as noted in HPI and below PMFSH Past Medical History Medical History Autism spectrum disorder Surgical History Surgical History History of incision and drainage 01/09/24 incision and drainage complex pilonidal cyst. Dr. Mujica Family History Family History Mother Thyroid cancer Social History Social History Smoking status: Never smoker Alcohol intake: current Alcohol use details: Occasional/social alcohol use Substance use: never Lack of Transportation: No Lack of Food: Never True Current Housing: I Have Housing Concerned About Future Housing: No Difficulty Paying Gas/Electric Bills: No Difficulty Paying for Meds: No Currently Unemployed: No Education: High School Diploma/GED Difficulty w/ Childcare or Family Care: No Living arrangements: with family Gender identity (if verbalized by the patient): Male Spiritual care concerns: No Exam Narrative: GENERAL: Well-appearing, well-nourished, and in no acute distress. HEAD: Normocephalic, atraumatic. EYES: PERRLA and EOMI. ENT: Nares clear, no rhinorrhea or epistaxis. Mucous membranes moist. Oropharynx without tonsillar hypertrophy exudate or other lesions. Bilateral TMs pearly boss non-bulging NECK: Supple. No adenopathy or masses. No carotid bruits or JVD CHEST: Clear to auscultation. No respiratory distress. No wheezes rales or rhonchi HEART: Regular rate and rhythm. No murmur heard. Normal peripheral pulses. ABDOMEN: Soft, nontender, nondistended, normal active bowel sounds. EXTREMITIES: Normal range of motion. No edema. SKIN: Warm, dry, no rash. NEURO: A&O X3. Speech clear. Follows commands. CN II-XII intact. Sensation grossly intact. Steady gait. No ataxic movements. Strength 5/5 in upper and lower extremities bilaterally. [id number]-[id number] and haqhva-[id number]-txek testing intact bilaterally. No pronator drift. PSYCH: Normal mood and affect Course Vital Signs Vital signs: Vital Signs Temperature 98.1 F 02/16/25 20:09 Pulse Rate 51 L 02/16/25 20:09 Respiratory Rate 14 02/16/25 20:09 Blood Pressure 131/58 L 02/16/25 20:09 Pulse Oximetry 99 02/16/25 20:09 Oxygen Delivery Room Air 02/16/25 20:09 Temperature 98.1 F 02/16/25 20:09 Pulse Rate 74 02/16/25 23:16 Respiratory Rate 16 02/16/25 23:16 Blood Pressure 127/62 02/16/25 23:16 Pulse Oximetry 98 02/16/25 23:16 Oxygen Delivery Room Air 02/16/25 20:09 [facility] Narrative Medical decision making narrative: 24-year-old male presenting after a head injury at work today. Patient was seen by urgent care and urgent care sent him over to the ED advising a CT head. Patient presently reporting dizziness and a headache. Denies loss of consciousness, weakness, nausea/vomiting, chest pain or shortness of breath. Upon my initial assessment patient appears nontoxic with stable vitals. Neuro exam demonstrates no focal deficits. CT imaging demonstrates no acute abnormalities. Patient declined medications. Provided a work note and a prescription for Zofran. Patient agrees with discussion and after shared medical decision making agrees with plan of care. All questions were answered to the patient's satisfaction. The patient is appropriate for outpatient treatment and follow-up. Given reasons to return. Differential Diagnosis Differential Diagnosis: Differential diagnostic considerations for head injury/trauma include post-concussion syndrome, closed head injury, intercranial hemorrhage, basilar skull fracture, facial fractures, globe injury, laceration. Medical Records I have reviewed the following patient records and this information was taken into consideration when formulating the assessment and plan.: previous labs and previous ER visits Imaging Data Attestation: I personally reviewed and interpreted this imaging study as follows: Radiologist's impression: ITS Impressions Head CT 02/16/25 20:52 IMPRESSION: 1. No acute intracranial abnormality. Discharge Plan Discharge Clinical Impression: Concussion without loss of consciousness Patient Disposition: Home Condition: Stable Instructions: Concussion (ED) Additional Instructions: Return to the emergency department if you experience fever, chest pain, shortness of breath, abdominal pain with nausea and vomiting, weakness, numbness/tingling, or any other symptoms that are concerning to you. Take anti-nausea medication as needed and prescribed. Get plenty of rest. Follow up with primary care doctor. Patient Language: Latvian Prescriptions: New ondansetron 4 mg tablet,disintegrating 4 mg PO Q6H PRN (Reason: nausea and vomiting) Qty: 14 0RF No Action (DME) Aerochamber MV Spacer See Rx Instructions .Route Qty: 1 0RF Rx Instructions: As directed promethazine-DM 6.25-15 mg/5 mL syrup 5 ml PO Q4-6H PRN (Reason: cough) Qty: 118 0RF albuterol sulfate 90 mcg/actuation HFA aerosol inhaler 2 puff inhalation QID PRN (Reason: shortness of breath or wheezing) Qty: 6.7 0RF ondansetron 4 mg tablet,disintegrating 4 mg PO Q8H PRN (Reason: nausea and vomiting) Qty: 10 0RF Follow-up/Referrals: PHYSICIAN,[employer] [Non-Staff, Internal Medicine] Stand Alone Forms: Work/School Release IP
== END 2025-02-16 23:17 | disposition home or self-care (01) ==
LOC: ANHED 23:01
DX: S06.0X0A Concussion without loss of consciousness, initial encounter (principal); F84.0 Autistic disorder; W22.8XXA Striking against or struck by other objects, initial encounter
CPT/HCPCS: 70450; 99284